=== PATIENT | male | born 1985 | race African-American/Black ===

== ENCOUNTER 2019-05-16 19:09 | Emergency (ER) | payer OTHER ==
[~2019-05-16] VITALS: Ht 177.8 cm; Wt 136.1 kg
[2019-05-16 19:48] LABS: BASOPHILS 1.6 % (0.0-2.0); EOSINOPHILS 2.7 % (0.0-3.0); HEMOGLOBIN 13.7 gm/dL (14.0-18.0); LYMPHOCYTES 32.8 % (24.0-44.0); MCH 26.8 pg (26.0-34.0); MCV 76.7 fL (80.0-100.0); MONOCYTES 8.1 % (1.0-8.0); PLATELET COUNT 222 thou/uL (150-400); POLYS 54.8 % (36.0-66.0); RBC 5.09 mil/uL (4.50-6.00); RDW 13.7 % (10.5-14.5); WBC 5.5 thou/uL (4.0-11.0)
[2019-05-16 19:57] LABS: CALCIUM 9.4 mg/dL (8.5-10.1); CREATININE 1.3 mg/dL (0.7-1.3); POTASSIUM 3.3 mmol/L (3.5-5.1)
[2019-05-16 21:18] VITALS: BP 135/50
[2019-05-16] MEDS ORDERED: MICROZIDE12.5 MG PO (21:21)
== END 2019-05-16 21:31 | disposition home or self-care (01) ==
LOC: ER 19:09
PROVIDERS: Emergency Medicine
DX: R04.0 Epistaxis (principal)